=== PATIENT | male | born 1945 | race Hispanic/Latino ===

== ENCOUNTER 2023-01-08 05:33 | Inpatient (IN) | payer MEDICARE, OTHER ==
[2023-01-08] VITALS (7 sets, daily range): BP systolic 129–150; BP diastolic 66–79; PULSE 67–82; RESP 17–20; TEMP 97.1–98.6; O2SAT 94–98
[~2023-01-08] VITALS: Ht 152.4 cm; Wt 72.6 kg
[~2023-01-08 05:33] MED LIST: ATORVASTATIN CA20 MG PO; CLOPIDOGREL75 MG PO; FLOMAX0.4 MG PO; LANTUS 3ML100 UNITS/ SC; LISINOPRIL2.5 MG PO; METFORMIN HCL500 MG PO; PENTOXIFYLLINE400 MG PO; QUETIAPINE FUMA25 MG PO
[2023-01-08 06:09] LABS: BASOPHILS % 0.5 % (0.0-1.0); EOSINOPHILS # (AUTO) 0.2 (0.0-0.4); EOSINOPHILS % 3.3 % (0.0-6.0); HEMATOCRIT 37.2 % (38.2-49.6); HEMOGLOBIN 13.4 g/dL (14.0-18.0); LYMPHOCYTES # (AUTO) 1.3 (1.0-3.2); LYMPHOCYTES % 22.1 % (18.0-39.1); MEAN CORPUSCULAR HEMOGLOBIN 30.9 pg (28-32); MEAN CORPUSCULAR VOLUME 85.9 fL (81-99); MONOCYTES # (AUTO) 0.6 (0.2-0.8); MONOCYTES % 9.6 % (4.4-11.3); NEUTROPHILS # (AUTO) 3.7 (2.1-6.9); NEUTROPHILS % 63.8 % (38.7-80.0); PLATELET COUNT 145 x10e3/uL (140-360); RED BLOOD COUNT 4.33 x10e6/uL (4.3-5.7); RED CELL DISTRIBUTION WIDTH 12.6 % (11.7-14.4)
[2023-01-08] MEDS ORDERED: GENTAMICIN 80MG/NS 100 ML 200 ML IV ONE (06:24)
[2023-01-08] MEDS ORDERED: Ampicillin INJ 1 GM Vial ONE (06:25)
[2023-01-08] MEDS: LACTATED RINGER'S 1,000 ML ONE ×2 (06:29→13:33)
[2023-01-08 06:39] LABS: ANION GAP 12.5 mmol/L (8-16); CALCIUM 8.7 mg/dL (8.4-10.2); CREATININE, SERUM 0.95 mg/dL (0.72-1.25); POTASSIUM 4.5 mmol/L (3.5-5.1)
[2023-01-08] MEDS ORDERED: IOPAMIDOL 610MG/1ML 300 MG/ML VIAL IV ONE (06:40)
[2023-01-08] MEDS ORDERED: SODIUM CHLORIDE 0.9% 1000ML 1,000 ML ONE ×2 (07:09→10:44)
[2023-01-08 09:55] LABS: ANION GAP 11.3 mmol/L (8-16); CALCIUM 8.2 mg/dL (8.4-10.2); CREATININE, SERUM 0.84 mg/dL (0.72-1.25); POTASSIUM 4.3 mmol/L (3.5-5.1)
[2023-01-08] MEDS ORDERED: PHENAZOPYRIDINE HCL 100 MG TAB PO PRN (12:00)
[2023-01-08] MEDS ORDERED: DIPHENHYDRAMINE HCL 25 MG CAP PO PRN (12:00)
[2023-01-08] MEDS ORDERED: ACETAMINOPHEN/CODEINE 300MG - 30MG TAB PO PRN (12:00)
[2023-01-08] MEDS: FLUCONAZOLE 200 MG/100 ML 100 ML IV SCH (12:00)
[2023-01-08] MEDS ORDERED: ONDANSETRON HCL INJ 2MG/ML 2ML 2 MG/ML VIAL IV PRN (12:00)
[2023-01-08] MEDS ORDERED: LIDOCAINE HCL 2% LOCAL INJ 5 ML SDV VIAL INJ ONE (12:51)
[2023-01-08] MEDS ORDERED: EPHEDRINE SULFATE INJ 50 MG/ML VIAL ONE (12:51)
[2023-01-08] MEDS ORDERED: PROPOFOL IV EMULSION 10 MG/ML 20 ML VIAL ONE (12:51)
[2023-01-08] MEDS ORDERED: SEVOFLURANE INHAL SOLN 250 ML PEN BTL ONE (12:51)
[2023-01-08] MEDS ORDERED: ONDANSETRON HCL INJ 2MG/ML 2ML 2 MG/ML VIAL ONE (12:51)
[2023-01-08] MEDS ORDERED: POVIDONE IODINE 0.05% 0.05 % ML PO ONE (12:51)
[2023-01-08] MEDS ORDERED: FENTANYL CITRATE/PF 100MCG/2 ML INJ ONE (13:56)
[2023-01-08] MEDS: DOCUSATE SODIUM 100 MG CAP PO SCH (16:47)
[2023-01-09] MEDS: SODIUM CHLORIDE 0.9% 1000ML 1,000 ML IV SCH ×4 (00:35→23:36)
[2023-01-09 04:46] LABS: BASOPHILS % 0.3 % (0.0-1.0); EOSINOPHILS # (AUTO) 0.1 (0.0-0.4); EOSINOPHILS % 2.1 % (0.0-6.0); HEMATOCRIT 35.9 % (38.2-49.6); HEMOGLOBIN 12.6 g/dL (14.0-18.0); LYMPHOCYTES # (AUTO) 0.8 (1.0-3.2); LYMPHOCYTES % 14.1 % (18.0-39.1); MEAN CORPUSCULAR HEMOGLOBIN 30.7 pg (28-32); MEAN CORPUSCULAR HGB CONC 35.1 g/dL (31-35); MEAN CORPUSCULAR VOLUME 87.3 fL (81-99); MONOCYTES # (AUTO) 0.5 (0.2-0.8); MONOCYTES % 8.9 % (4.4-11.3); NEUTROPHILS # (AUTO) 4.3 (2.1-6.9); NEUTROPHILS % 74.1 % (38.7-80.0); PLATELET COUNT 122 x10e3/uL (140-360); RED BLOOD COUNT 4.11 x10e6/uL (4.3-5.7); RED CELL DISTRIBUTION WIDTH 12.9 % (11.7-14.4)
[2023-01-09 05:06] LABS: ANION GAP 13.3 mmol/L (8-16); CALCIUM 8.4 mg/dL (8.4-10.2); CREATININE, SERUM 0.84 mg/dL (0.72-1.25); POTASSIUM 4.3 mmol/L (3.5-5.1)
[2023-01-09 05:09] LABS: MAGNESIUM 1.1 MG/DL (1.3-2.1)
[2023-01-09 06:39] VITALS: BP 137/81; PULSE 74; RESP 18; TEMP 97.6; O2SAT 100
[2023-01-09] MEDS ORDERED: MAGNESIUM SULFATE 2GM/50ML 100 ML IV ONE (07:15)
[2023-01-09 08:00] VITALS: BP 155/74; PULSE 78; RESP 18; TEMP 97.6; O2SAT 100
[2023-01-09 08:30] VITALS: BP 155/74; PULSE 78; RESP 18; TEMP 97.6; O2SAT 100
[2023-01-09] MEDS: DOCUSATE SODIUM 100 MG CAP PO SCH ×2 (08:40→16:20)
[2023-01-09] MEDS ORDERED: DEXTROSE 50% SYRINGE 50 ML IV PRN (09:15)
[2023-01-09] MEDS ORDERED: MAGNESIUM SULFATE 2GM/50ML IV ONE (09:15)
[2023-01-09] MEDS ORDERED: MAGNESIUM SULFATE 2GM/50ML 50 ML IV ONE (11:15)
[2023-01-09] MEDS: INSULIN LISPRO 100 UNIT/1 ML 3ML VIAL SQ SCH ×3 (11:30→20:33)
[2023-01-09 12:00] VITALS: BP 159/65; PULSE 63; RESP 19; TEMP 99; O2SAT 99
[2023-01-09] MEDS: FLUCONAZOLE 200 MG/100 ML 100 ML IV SCH (13:08)
[2023-01-09 16:35] VITALS: BP 181/71; PULSE 68; RESP 22; TEMP 98.5; O2SAT 98
[2023-01-09 20:00] VITALS: BP 164/70; PULSE 72; RESP 20; TEMP 98.6; O2SAT 97
[2023-01-09] MEDS: ATORVASTATIN 40 MG TAB PO SCH (20:23)
[2023-01-09] MEDS: TAMSULOSIN HCL 0.4 MG CAP PO SCH (20:23)
[2023-01-09] MEDS: QUETIAPINE FUMARATE 25 MG TAB PO SCH (20:23)
[2023-01-09] MEDS: INSULIN GLARGINE 100 UNITS/ML VIAL SC SCH (20:32)
[2023-01-10] VITALS (7 sets, daily range): BP systolic 148–186; BP diastolic 59–80; PULSE 57–75; RESP 18–20; TEMP 98–98.9; O2SAT 94–100
[2023-01-10 05:04] LABS: BASOPHILS % 0.4 % (0.0-1.0); EOSINOPHILS # (AUTO) 0.2 (0.0-0.4); EOSINOPHILS % 4.5 % (0.0-6.0); HEMATOCRIT 35.1 % (38.2-49.6); HEMOGLOBIN 12.2 g/dL (14.0-18.0); LYMPHOCYTES % 22.1 % (18.0-39.1); MEAN CORPUSCULAR HEMOGLOBIN 30.7 pg (28-32); MEAN CORPUSCULAR HGB CONC 34.8 g/dL (31-35); MEAN CORPUSCULAR VOLUME 88.4 fL (81-99); MONOCYTES # (AUTO) 0.5 (0.2-0.8); MONOCYTES % 11.5 % (4.4-11.3); NEUTROPHILS # (AUTO) 2.9 (2.1-6.9); NEUTROPHILS % 61.1 % (38.7-80.0); PLATELET COUNT 107 x10e3/uL (140-360); RED BLOOD COUNT 3.97 x10e6/uL (4.3-5.7)
[2023-01-10 05:26] LABS: ANION GAP 12.7 mmol/L (8-16); CALCIUM 8.3 mg/dL (8.4-10.2); POTASSIUM 4.7 mmol/L (3.5-5.1)
[2023-01-10 05:53] LABS: MAGNESIUM 1.7 MG/DL (1.3-2.1); PHOSPHORUS 3.3 MG/DL (2.3-4.7)
[2023-01-10] MEDS: INSULIN LISPRO 100 UNIT/1 ML 3ML VIAL SQ SCH ×4 (07:30→20:22)
[2023-01-10] MEDS ORDERED: MAGNESIUM SULFATE 2GM/50ML IV ONE (08:30)
[2023-01-10] MEDS ORDERED: LISINOPRIL 2.5 MG TAB PO SCH (09:00)
[2023-01-10] MEDS ORDERED: MAGNESIUM SULFATE 2GM/50ML 50 ML IV ONE (09:00)
[2023-01-10] MEDS: DOCUSATE SODIUM 100 MG CAP PO SCH ×2 (09:58→16:44)
[2023-01-10] MEDS: SODIUM CHLORIDE 0.9% 1000ML 1,000 ML IV SCH (09:59)
[2023-01-10] MEDS ORDERED: ONDANSETRON HCL 4 MG ORAL DISINTEGRATING TAB PO PRN (10:15)
[2023-01-10] MEDS: FLUCONAZOLE 200 MG/100 ML 100 ML IV SCH (12:39)
[2023-01-10] MEDS ORDERED: LISINOPRIL 2.5 MG TAB PO ONE (17:30)
[2023-01-10] MEDS: INSULIN GLARGINE 100 UNITS/ML VIAL SC SCH (20:21)
[2023-01-10] MEDS: ATORVASTATIN 40 MG TAB PO SCH (20:23)
[2023-01-10] MEDS: TAMSULOSIN HCL 0.4 MG CAP PO SCH (20:24)
[2023-01-10] MEDS: QUETIAPINE FUMARATE 25 MG TAB PO SCH (20:24)
[2023-01-11 00:20] VITALS: BP 152/85; PULSE 64; RESP 18; TEMP 98.6; O2SAT 98
[2023-01-11 04:53] LABS: BASOPHILS % 0.4 % (0.0-1.0); EOSINOPHILS # (AUTO) 0.2 (0.0-0.4); EOSINOPHILS % 4.1 % (0.0-6.0); HEMATOCRIT 35.5 % (38.2-49.6); HEMOGLOBIN 12.7 g/dL (14.0-18.0); LYMPHOCYTES % 21.1 % (18.0-39.1); MEAN CORPUSCULAR HEMOGLOBIN 30.6 pg (28-32); MEAN CORPUSCULAR HGB CONC 35.8 g/dL (31-35); MEAN CORPUSCULAR VOLUME 85.5 fL (81-99); MONOCYTES # (AUTO) 0.5 (0.2-0.8); MONOCYTES % 10.7 % (4.4-11.3); NEUTROPHILS # (AUTO) 3.1 (2.1-6.9); NEUTROPHILS % 63.3 % (38.7-80.0); PLATELET COUNT 120 x10e3/uL (140-360); RED BLOOD COUNT 4.15 x10e6/uL (4.3-5.7)
[2023-01-11 05:00] VITALS: BP 157/82; PULSE 60; RESP 18; TEMP 98.4; O2SAT 99
[2023-01-11 05:16] LABS: ANION GAP 12.1 mmol/L (8-16); CALCIUM 8.5 mg/dL (8.4-10.2); CREATININE, SERUM 0.85 mg/dL (0.72-1.25); POTASSIUM 4.1 mmol/L (3.5-5.1)
[2023-01-11 07:19] VITALS: BP 173/74; PULSE 69; RESP 18; TEMP 97.3; O2SAT 97
[2023-01-11] MEDS: INSULIN LISPRO 100 UNIT/1 ML 3ML VIAL SQ SCH (07:30)
[2023-01-11] MEDS ORDERED: LISINOPRIL 10 MG TAB PO SCH (09:00)
[2023-01-11] MEDS ORDERED: NIFEDIPINE CR 30 MG TAB PO ONE (09:15)
[2023-01-11] MEDS: DOCUSATE SODIUM 100 MG CAP PO SCH (09:15)
[2023-01-11 09:39] VITALS: BP 173/74; PULSE 69; RESP 18; TEMP 97.3; O2SAT 97
[2023-01-11] MEDS ORDERED: DIFLUCAN100 MG PO (10:26)
[2023-01-11] MEDS ORDERED: MAGNESIUM OXID400 MG PO (10:27)
[2023-01-11] MEDS ORDERED: TYLENOL #3 PO (10:27)
[2023-01-11] MEDS ORDERED: NIFEDIPINE ER30 M1 PO (10:28)
[2023-01-11] MEDS ORDERED: ONDANSETRON ODT4 MG SL (10:28)
[2023-01-11] MEDS ORDERED: SENOKOT-S TABL1 EACH PO (10:30)
[2023-01-11] MEDS ORDERED: SENOKOT (10:30)
[2023-01-11] MEDS ORDERED: FLUCONAZOLE 100 MG TAB PO SCH (12:00)
== END 2023-01-11 11:22 | disposition home health service (06) | DRG 669 ==
LOC: OR 05:33 → PACU V 11:47 → MED/SURG 12:43
PROVIDERS: ADMIT Internal Medicine; ATTEND Internal Medicine
PROC: BT141ZZ Fluoroscopy of Kidneys, Ureters and Bladder using Low Osmolar Contrast (ICD-10-PCS; 2023-01-08)
PROC: 0TBC8ZZ Excision of Bladder Neck, Via Natural or Artificial Opening Endoscopic (ICD-10-PCS; principal; 2023-01-08 07:52)
DX: N32.0 Bladder-neck obstruction (principal); E87.1 Hypo-osmolality and hyponatremia; T83.511A Infection and inflammatory reaction due to indwelling urethral catheter, initial encounter; N39.0 Urinary tract infection, site not specified; R33.9 Retention of urine, unspecified; F03.90 Unspecified dementia, unspecified severity, without behavioral disturbance, psychotic disturbance, mood disturbance, and anxiety; M19.90 Unspecified osteoarthritis, unspecified site; E11.51 Type 2 diabetes mellitus with diabetic peripheral angiopathy without gangrene; E11.40 Type 2 diabetes mellitus with diabetic neuropathy, unspecified; D64.9 Anemia, unspecified; E87.8 Other disorders of electrolyte and fluid balance, not elsewhere classified; I10 Essential (primary) hypertension; L08.9 Local infection of the skin and subcutaneous tissue, unspecified; Z99.3 Dependence on wheelchair; Z74.01 Bed confinement status; Z79.4 Long term (current) use of insulin
CPT/HCPCS: 36415; 51700; 71046; 74420; 80048; 82948; 83735; 83930; 83935; 84100; 84295; 84443; 85025; 87086; 93005; 94799; C1758; J1450; J1580; J2001; J2405; J3475; J7030